=== PATIENT | female | born 1925 | race Caucasian/White ===

== ENCOUNTER → 2016-04-19 | Outpatient (CLI) | payer MEDICARE ==
[~2016-04-19] MED LIST: ALBUTEROL0.09 MG/A2 IH; AMOXICILLIN500 MG PO; ASPIRIN CHEWABL81 M1 PO; ASPIRIN81 M1 PO; ATARAX25 MG PO; ATORVASTATIN CA20 M1 PO; CIPRO500 MG PO; COZAAR50 MG PO; LIPITOR40 MG PO; LOSARTAN POTASS50 M1 PO; METFORMIN HCL500 MG PO; METFORMIN500 MG PO; Metformin Hydr500 MG PO; TESSALON PERLE100 M1 PO; VICODIN 5/500 505 MG PO; ZITHROMAX Z PA250 MG PO
== END | disposition home or self-care (01) ==
LOC: MAMMO 10:00
DX: N60.02 Solitary cyst of left breast (principal); N63 Unspecified lump in breast

== ENCOUNTER 2016-08-11 23:49 | Inpatient (IN) | payer MEDICARE ==
[~2016-08-11] VITALS: Ht 157.4 cm; Wt 51.9 kg
--- NOTE | ~2016-08-11 | CON ---
[place], [place] REPORT OF CONSULTATION NAME: [id number] UNIT #: [id number] ROOM: [place] [address] DOCTOR: PHILIP MELTON MD BIRTHDATE: [birth year] DOS: 08/12/2016 CARDIOLOGY CONSULT REASON FOR CONSULT: Ventricular arrhythmias and heart block. HISTORY: The patient is an 89-year-old patient who was admitted for her mental status changes. She recently had left shoulder surgery and was at a half-way. In the hospital, she was noted to have "ventricular arrhythmias" and was coded and she was transferred to the intensive care unit and Cardiology was consulted for further recommendation for her cardiac arrhythmias as well as "heart block." History was obtained from the chart since the patient was unable to give any history and also history was obtained from the resident physicians as well as Dr. Guillen. Upon her admission, chest x-ray showed possible aspiration pneumonitis versus pneumonia, although her white cell count was normal, but she did have some temperature. On the floor, she was noted to have Torsade as well as ventricular fibrillation and code blue was called in and then she was transferred to intensive care unit. In the intensive care unit, she again was having Torsade with AV blocks and the patient requiring intubation and sedation. REVIEW OF SYSTEMS: Unable to obtain due to patient's mental status and currently, she was in ventilator. PAST MEDICAL HISTORY: Obtained from her admission records. History of syncope, recent left shoulder fracture, malnutrition, diabetes, hypertension and dyslipidemia. PAST SURGICAL HISTORY: History of recent left shoulder surgery, right knee surgery, partial colectomy, cataract surgery, appendectomy. SOCIAL HISTORY: The patient does not smoke, does not drink alcohol, does not use illicit drugs. FAMILY HISTORY: Noncontributory due to her age. Her father had lung cancer, . Her mother had heart disease and diabetes, . ALLERGIES: THE PATIENT IS ALLERGIC TO PREDNISONE, SULFA AND PROMETHAZINE. HOME MEDICATIONS: Reviewed. PHYSICAL EXAMINATION: VITAL SIGNS: At the time of my examination, blood pressure 134/51, pulse 56, the patient is on ventilator. GENERAL: The patient otherwise is on the ventilator and sedated. HEAD AND NECK: No distended neck veins. No carotid bruit. CHEST: Symmetrical. LUNGS: With few scattered rhonchi anteriorly. HEART: Irregular, grade 1/6 systolic murmur. No palpable thrills. ABDOMEN: Bowel sounds normal. No pulsatile masses. [place], [place] REPORT OF CONSULTATION NAME: ANTOINETTE LOPEZ UNIT #: [id number] ROOM: [place] [address] DOCTOR: LINH CORMIER,PHILIP BIRTHDATE: [birth year] EXTREMITIES: Showed trace edema. Distal pulses are palpable. SKIN: Warm and dry. No cyanosis, no clubbing. NEUROLOGIC: The patient is on ventilator and unable to assess. RECTAL: Deferred. GENITOURINARY: Deferred. REVIEW OF THE DIAGNOSTIC TESTS: Her rhythm strips, labs and EKG were reviewed. IMPRESSION: 1. 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 2. Ventricular fibrillation. 3. Intermittent AV block. 4. Respiratory failure on mechanical ventilation. 5. Mild hypokalemia. 6. Pneumonia. 7. History of hypertension. 8. History of dyslipidemia. 9. Borderline elevation of troponin. 10. Fever. RECOMMENDATIONS: 1. We will give her magnesium sulfate 2 grams intravenously, her magnesium is 1.9. 2. Replace the potassium 40 mEq intravenously. 3. Hydralazine intravenously 10 mg p.r.n. for systolic pressure greater than 90. 4. Initially, I recommended to transfer her to a tertiary care facility, [facility]. While I am making arrangements to transfer the patient, I was notified by the nursing staff that her family preferred to keep her in [place] and does not wish transfer and her daughter is on her way from [place] and also her code status was changed to DNR-CCA. 5. 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 The Isuprel is not in the formulary at this time. 6. Her condition is critical with poor prognosis. 7. Continue her current mechanical support and dopamine to keep heart rates above 70 and IV hydralazine as needed for her blood pressure control. 8. There is no family at bedside. Above treatment was discussed with resident staff and also Dr. Guillen. [place], [place] REPORT OF CONSULTATION NAME: ANTOINETTE LOPEZ UNIT #: [id number] ROOM: [place] [address] DOCTOR: LINH CORMIER,PHILIP BIRTHDATE: [birth year] PHILIP MELTON MD CM:CONSTR:REPORT OF CONSULTATION [id number] 08/14/16 0058 interface
--- NOTE | ~2016-08-11 | CON ---
[place], [place] REPORT OF CONSULTATION NAME: ANTOINETTE LOPEZ UNIT #: [id number] ROOM: [place] [address] DOCTOR: JEFFERY MENENDEZ MD,RADHA BIRTHDATE: [birth year] DOS: 08/13/2016 The patient asked for consultation to be seen, but the patient this morning prior to the assessment. RADHA GIL MD CM:CONSTR:REPORT OF CONSULTATION 1407 08/14/16 0623 interface
[2016-08-11 23:49] VITALS: BP 138/76
[2016-08-12] VITALS (39 sets, daily range): BP systolic 0–210; BP diastolic 0–103
[2016-08-12] MEDS ORDERED: HYDROCODONE BIT1 T11 PO (00:26)
[2016-08-12] MEDS ORDERED: PRESERVISION A1 EAC1 PO (00:26)
[2016-08-12] MEDS ORDERED: PRILOSEC20 M1 PO (00:27)
[2016-08-12 00:28] LABS: BASO # 0.1 10*3/uL (0.0-0.1); BASO % 0.6 % (0.0-1.0); EOS # 0.2 10*3/uL (0.0-0.4); EOS % 2.3 % (1.0-4.0); HEMATOCRIT 38.9 % (37.0-47.0); HEMOGLOBIN 12.7 g/dl (12.0-16.0); LYMPH # 2.2 10*3/uL (1.3-4.4); LYMPH % 22.6 % (27.0-41.0); MEAN CELL VOLUME 88.4 fl (81.0-99.0); MEAN CORPUSCULAR HGB 28.9 pg (27.0-31.0); MEAN CORPUSCULAR HGB CONC 32.6 g/dl (33.0-37.0); MEAN PLATELET VOLUME 9.9 fl (9.6-12.3); MONO # 1.1 10*3/uL (0.1-1.0); MONO % 11.2 % (3.0-9.0); NEUT # 6.2 10*3/uL (2.3-7.9); PLATELET COUNT AUTOMATED 413 10*3/uL (130-400); RED CELL DISTRI WIDTH 15.2 % (0-14.5); WHITE BLOOD COUNT 9.8 10*3/uL (4.8-10.8)
[2016-08-12] MEDS ORDERED: GOOD NEIGHBOR650 MG PO (00:28)
[2016-08-12] MEDS ORDERED: XANAX0.25 MG PO (00:28)
[2016-08-12 00:40] LABS: PROTHROMBIN TIME 10.2 SECONDS (9.0-12.4)
[2016-08-12 00:44] LABS: ALBUMIN 3.6 gm/dl (3.1-4.5); ALKALINE PHOSPHATASE 92 U/L (45-117); BILIRUBIN, TOTAL 0.4 mg/dl (0.2-1.0); BUN 14 mg/dl (7-24); CARBON DIOXIDE 28 mmol/L (21-32); CHLORIDE 100 mmol/L (98-107); EST GLOM FILT AFRICAN AMERICAN > 60 ml/min; GLUCOSE 135 mg/dL (65-99); MAGNESIUM 1.7 mg/dL (1.5-2.1); POTASSIUM 3.4 mmol/L (3.5-5.1); SGOT/AST 17 IU/L (3-35); SGPT/ALT 14 U/L (12-78); SODIUM 138 mmol/L (136-145); TOTAL PROTEIN 6.7 gm/dL (6.4-8.2); TROPONIN I 0.017 ng/ml (<0.045)
[2016-08-12 01:47] LABS: BILIRUBIN 1+ (NEGATIVE); BLOOD 2+ (NEGATIVE); CLARITY CLEAR (CLEAR); COLOR YELLOW (YELLOW); GLUCOSE NEGATIVE (NEGATIVE); KETONE NEGATIVE (NEGATIVE); LEUKO ESTERASE NEGATIVE (NEGATIVE); NITRITE NEGATIVE (NEGATIVE); PH 5.5 (5.0-9.0); PROTEIN 3+ (NEGATIVE); SPECIFIC GRAVITY >= 1.030 (1.005-1.030); UROBILINOGEN 0.2 E.U./dl (0.2-1.0)
[2016-08-12 01:55] LABS: MUCOUS TRACE; URINE REFLEX COMMENT YES (NO)
[2016-08-12 06:27] LABS: BASO # 0.1 10*3/uL (0.0-0.1); BASO % 0.4 % (0.0-1.0); EOS % 0.1 % (1.0-4.0); HEMATOCRIT 39.1 % (37.0-47.0); HEMOGLOBIN 12.9 g/dl (12.0-16.0); IG # 0.1 10*3/uL (0.0-0.1); LYMPH # 0.6 10*3/uL (1.3-4.4); LYMPH % 4.6 % (27.0-41.0); MEAN CELL VOLUME 86.5 fl (81.0-99.0); MEAN CORPUSCULAR HGB 28.5 pg (27.0-31.0); MEAN PLATELET VOLUME 10.5 fl (9.6-12.3); MONO # 0.7 10*3/uL (0.1-1.0); MONO % 4.9 % (3.0-9.0); NEUT % 89.6 % (47.0-73.0); PLATELET COUNT AUTOMATED 292 10*3/uL (130-400); RED BLOOD COUNT 4.52 10*6/uL (4.10-5.10); RED CELL DISTRI WIDTH 15.1 % (0-14.5); WHITE BLOOD COUNT 13.4 10*3/uL (4.8-10.8)
[2016-08-12 06:40] LABS: ALBUMIN 3.2 gm/dl (3.1-4.5); BUN 10 mg/dl (7-24); CARBON DIOXIDE 25 mmol/L (21-32); CHLORIDE 99 mmol/L (98-107); EST GLOM FILT AFRICAN AMERICAN > 60 ml/min; GLUCOSE 167 mg/dL (65-99); MAGNESIUM 1.8 mg/dL (1.5-2.1); POTASSIUM 3.2 mmol/L (3.5-5.1); SGOT/AST 16 IU/L (3-35); SGPT/ALT 11 U/L (12-78); SODIUM 137 mmol/L (136-145)
[2016-08-12 06:41] LABS: CKMB 1.4 ng/ml (0.5-3.6); TROPONIN I 0.032 ng/ml (<0.045)
[2016-08-12 06:46] LABS: ALKALINE PHOSPHATASE 85 U/L (45-117); BILIRUBIN, TOTAL 0.6 mg/dl (0.2-1.0); CHOLESTEROL 129 mg/dL (<200); FREE T4 1.55 ng/dl (0.76-1.46); HDL CHOLESTEROL 76 mg/dl (40-60); LDL CHOLESTEROL 38 mg/dL (9-159); PHOSPHOROUS 2.3 mg/dL (2.5-4.9); TOTAL PROTEIN 6.1 gm/dL (6.4-8.2); TRIGLYCERIDES 75 mg/dl (<150); VLDL CHOLESTEROL 15 mg/dL (6-40)
[2016-08-12 06:58] LABS: PROTHROMBIN TIME 10.7 SECONDS (9.0-12.4)
[2016-08-12 07:10] LABS: VITAMIN D, 25-HYDROXY 36.2 ng/mL (30-100)
[2016-08-12 07:11] LABS: FOLIC ACID > 24.00 ng/mL (>5.38)
[2016-08-12 11:37] LABS: HEMOGLOBIN 13.4 g/dl (12.0-16.0); MEAN CELL VOLUME 85.8 fl (81.0-99.0); MEAN CORPUSCULAR HGB 28.8 pg (27.0-31.0); MEAN CORPUSCULAR HGB CONC 33.5 g/dl (33.0-37.0); MEAN PLATELET VOLUME 9.1 fl (9.6-12.3); PLATELET COUNT AUTOMATED 361 10*3/uL (130-400); RED BLOOD COUNT 4.66 10*6/uL (4.10-5.10); RED CELL DISTRI WIDTH 15.2 % (0-14.5); WHITE BLOOD COUNT 14.8 10*3/uL (4.8-10.8)
[2016-08-12 11:54] LABS: ALKALINE PHOSPHATASE 84 U/L (45-117); ATYPICAL LYMPHS 1 % (0-0); BILIRUBIN, TOTAL 0.7 mg/dl (0.2-1.0); BUN 10 mg/dl (7-24); CARBON DIOXIDE 26 mmol/L (21-32); CHLORIDE 99 mmol/L (98-107); CPK 116 U/L (26-192); EST GLOM FILT AFRICAN AMERICAN > 60 ml/min; GLUCOSE 181 mg/dL (65-99); LYMPHOCYTE # 0.4 10*3/uL (1.3-4.4); MAGNESIUM 1.7 mg/dL (1.5-2.1); MONOCYTE # 0.1 10*3/uL (0.1-1.0); NEUTROPHIL # 14.2 10*3/uL (2.3-7.9); NEUTROPHILS 96 % (47-73); PHOSPHOROUS 2.5 mg/dL (2.5-4.9); PLATELET SUFFICIENCY NORMAL (NORMAL); POTASSIUM 3.1 mmol/L (3.5-5.1); SGOT/AST 24 IU/L (3-35); SGPT/ALT 15 U/L (12-78); SODIUM 136 mmol/L (136-145); TOTAL CELLS COUNTED 100 #CELLS; TOTAL PROTEIN 5.9 gm/dL (6.4-8.2)
[2016-08-12 12:00] LABS: ABG CO2 CONTENT 27.7 mmol/L (23-27); ABG HCO3 26.4 mmol/l (22-26); ARTERIAL BLOOD GAS PH 7.399 (7.35-7.45); ARTERIAL BLOOD GAS PO2 40.2 mmHg (80-90)
[2016-08-12 12:06] LABS: TROPONIN I 0.085 ng/ml (<0.045)
[2016-08-12 18:18] LABS: CKMB 2.9 ng/ml (0.5-3.6)
[2016-08-12 18:20] LABS: TROPONIN I 0.426 ng/ml (<0.045)
[2016-08-13] VITALS (30 sets, daily range): BP systolic 72–107; BP diastolic 19–57
[2016-08-13 04:59] LABS: ABG BASE EXCESS 0.1 mmol/L (-2.0-2.0); ABG CO2 CONTENT 21.9 mmol/L (23-27); ABG HCO3 21.2 mmol/l (22-26); ABG TEMPERATURE 98.6 F (98.0-99.0); ARTERIAL BLOOD GAS PH 7.535 (7.35-7.45)
[2016-08-13 05:57] LABS: ALBUMIN 2.6 gm/dl (3.1-4.5); BILIRUBIN, TOTAL 0.7 mg/dl (0.2-1.0); MAGNESIUM 1.9 mg/dL (1.5-2.1); POTASSIUM 3.9 mmol/L (3.5-5.1); TOTAL PROTEIN 5.7 gm/dL (6.4-8.2)
[2016-08-13 06:03] LABS: TROPONIN I 2.92 ng/ml (<0.045)
[2016-08-13 06:18] LABS: BASO % 0.1 % (0.0-1.0); EOS % 0.1 % (1.0-4.0); HEMOGLOBIN 13.3 g/dl (12.0-16.0); IG # 0.1 10*3/uL (0.0-0.1); LYMPH # 0.9 10*3/uL (1.3-4.4); LYMPH % 6.4 % (27.0-41.0); MEAN CELL VOLUME 85.5 fl (81.0-99.0); MEAN CORPUSCULAR HGB 28.4 pg (27.0-31.0); MEAN CORPUSCULAR HGB CONC 33.3 g/dl (33.0-37.0); MEAN PLATELET VOLUME 10.3 fl (9.6-12.3); MONO # 1.8 10*3/uL (0.1-1.0); MONO % 12.4 % (3.0-9.0); NEUT # 11.4 10*3/uL (2.3-7.9); NEUT % 80.4 % (47.0-73.0); PLATELET COUNT AUTOMATED 356 10*3/uL (130-400); RED BLOOD COUNT 4.68 10*6/uL (4.10-5.10); RED CELL DISTRI WIDTH 15.6 % (0-14.5); WHITE BLOOD COUNT 14.2 10*3/uL (4.8-10.8)
== END 2016-08-13 09:01 | disposition expired | DRG 871 ==
LOC: ED 23:49 → EDHOLD 08-12 02:00 → 5E 08-12 02:00 → ICCU 08-12 10:54
PROVIDERS: Emergency Medicine; Internal Medicine; Internal Medicine Critical Care Medicine
PROC: 0BH17EZ Insertion of Endotracheal Airway into Trachea, Via Natural or Artificial Opening (ICD-10-PCS; principal; 2016-08-12)
PROC: 5A12012 Performance of Cardiac Output, Single, Manual (ICD-10-PCS; principal; 2016-08-12)
PROC: 5A1935Z Respiratory Ventilation, Less than 24 Consecutive Hours (ICD-10-PCS; principal; 2016-08-12)
DX: A41.9 Sepsis, unspecified organism (principal); R65.21 Severe sepsis with septic shock; J96.01 Acute respiratory failure with hypoxia; I49.01 Ventricular fibrillation; J69.0 Pneumonitis due to inhalation of food and vomit; N17.0 Acute kidney failure with tubular necrosis; E43 Unspecified severe protein-calorie malnutrition; G93.40 Encephalopathy, unspecified; E87.1 Hypo-osmolality and hyponatremia; Z99.11 Dependence on respirator [ventilator] status; D47.3 Essential (hemorrhagic) thrombocythemia; E83.42 Hypomagnesemia; I44.30 Unspecified atrioventricular block; E11.65 Type 2 diabetes mellitus with hyperglycemia; F41.1 Generalized anxiety disorder; K21.9 Gastro-esophageal reflux disease without esophagitis; I45.81 Long QT syndrome; Z66 Do not resuscitate; I10 Essential (primary) hypertension; Z96.651 Presence of right artificial knee joint; D64.9 Anemia, unspecified; E78.5 Hyperlipidemia, unspecified; E87.6 Hypokalemia; E83.39 Other disorders of phosphorus metabolism; I46.9 Cardiac arrest, cause unspecified; Z87.81 Personal history of (healed) traumatic fracture; Z98.49 Cataract extraction status, unspecified eye; Z90.49 Acquired absence of other specified parts of digestive tract; Z68.20 Body mass index [BMI] 20.0-20.9, adult; Z88.2 Allergy status to sulfonamides; Z88.8 Allergy status to other drugs, medicaments and biological substances; Z80.1 Family history of malignant neoplasm of trachea, bronchus and lung; Z82.49 Family history of ischemic heart disease and other diseases of the circulatory system; Z83.3 Family history of diabetes mellitus